=== PATIENT | female | born 1945 | race Caucasian/White ===

== ENCOUNTER 2016-05-17 07:11 | Emergency (ER) | payer OTHER ==
[~2016-05-17] VITALS: Ht 152.4 cm; Wt 74.0 kg
[~2016-05-17 07:11] MED LIST: ASPI81TA3 PO; BACL10TA PO; BENA1TAB13 PO; CHOL100062 PO; DIAZ5TAB4 PO; DIPH25CA6 PO; FENO48TA4 PO; GLIM4TAB PO; LANT3I SC; OMEG1CAP2 PO; PREG150C PO; TRAM50TA2 PO
[2016-05-17 07:15] VITALS: Ht 152.4 cm; Wt 74.0 kg
[2016-05-17] MEDS ORDERED: GABA300C PO (08:44)
--- NOTE | 2016-05-17 08:48 | ERD ---
ER Documentation Chief Complaint Date/Time DATE: 05/17/16 TIME: 08:45 Chief Complaint pt bib self with c/o pain to right side of face "feels like face is moving" HPI 70-year-old female presents to the emergency department with facial pain. In February of this year, patient was admitted to the hospital for possible TIA. At that time, MRI performed showed a pituitary adenoma but no signs of infarct. Patient states that since then, she has had a chronic intermittent right-sided facial pain. She normally takes tramadol for the pain, but last night despite taking the tramadol, the pain continued. She had no other neurologic complaints including no focal weakness numbness facial droop difficulty speaking or headache. ROS All systems reviewed and are negative except as per history of present illness. Medications Home Meds Active Scripts Gabapentin* (Neurontin*) 300 Mg Capsule, 300 MG PO BID for PAIN, #60 CAP Prov:RADHA JUAREZ 05/17/16 Tramadol HCl (Tramadol HCl) 50 Mg Tablet, 50 MG PO Q8H Y for body aches, #50 TAB Prov:OMAR MENA M.D. 03/01/16 Insulin Glargine* (Lantus*) 100 Unit/Ml Soln, 80 UNIT SC BID for 30 Days Prov:OMAR MENA M.D. 03/01/16 Reported Medications Benazepril-Hydrochlorothiazide (Benazepril-Hydrochlorothiazide) 20-12.5 Mg Tablet, 1 TAB PO DAILY, #30 TAB 02/29/16 Diazepam* (Diazepam*) 5 Mg Tablet, 5 MG PO DAILY Y for ANXIETY, TAB 02/29/16 Diphenhydramine Hcl* (Diphenhydramine Hcl*) 25 Mg Capsule, 25 MG PO DAILY Y for ITCHING, CAP 02/29/16 Aspirin* (Aspirin* Chew) 81 Mg Tab.chew, 81 MG PO DAILY, TAB.CHEW 02/29/16 Cholecalciferol* (Vitamin D3*) 1,000 Unit Tablet, 1000 UNIT PO DAILY, TAB 02/29/16 [place]-3 Acid Ethyl Esters (Lovaza) 1 Gm Capsule, 2 GM PO BID, CAP 02/29/16 Baclofen* (Baclofen*) 10 Mg Tablet, 10 MG PO BID, TAB 02/29/16 Pregabalin* (Lyrica*) 150 Mg Capsule, 150 MG PO BID, CAP 02/29/16 Fenofibrate Nanocrystallized* (Fenofibrate*) 48 Mg Tablet, 48 MG PO DAILY, TAB 02/29/16 Glimepiride* (Glimepiride*) 4 Mg Tablet, 8 MG PO DAILY, TAB 02/29/16 Allergies Allergies: Coded Allergies: No Known Drug Allergy (Verified Allergy, Unknown, 05/17/16) PMhx/Soc History of Surgery: Yes (hernia repair, Csection) Anesthesia Reaction: No Hx Neurological Disorder: No Hx Respiratory Disorders: No Hx Cardiac Disorders: Yes (HTN; HIGH CHOLESTEROL) Hx Psychiatric Problems: No Hx Miscellaneous Medical Probl: Yes (CVA; DM) Hx Alcohol Use: No Hx Substance Use: No Hx Tobacco Use: No FmHx Noncontributory for chief complaint Physical Exam Vitals Vital Signs Date Time Temp Pulse Resp B/P Pulse Ox O2 Delivery O2 Flow Rate FiO2 05/17/16 07:15 98.3 64 16 163/73 98 Physical Exam GENERAL: The patient is well developed and appropriate for usual state of health in no apparent distress HEENT: Pupils equal, round, and reactive to light. EOMI. There is no scleral icterus. NECK: C-spine is soft and supple, there is no meningismus. There is no cervical lymphadenopathy. LUNGS: Clear to auscultation bilaterally. There are no rales, wheezes or rhonchi. HEART: Regular rate and rhythm, no murmurs, clicks, rubs or gallops. ABDOMEN: Soft, non-tender, non-distended. There are bowel sounds in all four quadrants. No rebound or guarding. EXTREMITIES: There is no peripheral cyanosis or edema. No focal swelling or erythema. NEURO: Patient is awake alert oriented. Pupils are midrange, equal round and reactive to light, face is symmetric, tongue is midline. Motor strength is 5 out of 5 throughout all extremities. She has a normal gait and balance. Finger to nose is normal bilaterally. Speech is normal. SKIN: There is no apparent rash or petechiae. HEME/LYMPHATIC: There is no evidence of excessive bruising or lymphedema. PSYCHIATRIC: Patient is tearful and anxious. Procedures/MDM Patient was taken to a room, seen and examined. Medical decision making: This is a 70-year-old female with a history of a pituitary adenoma but no signs of ischemic cerebrovascular disease presents to the emergency department with chronic intermittent facial pain consistent with most likely a trigeminal neuralgia. At this time, patient shows no evidence of stroke, no evidence of infection and no evidence of neurologic deterioration. Her pain is clearly complicated by her anxiety and after explanation that her adenoma should not cause stroke it is not a dangerous concern, patient has been reassured. I will be adding Neurontin for her pain, but she otherwise appears to be clinically well with good outpatient follow-up and now appears appropriate for outpatient care. Departure Diagnosis: Primary Impression: Pain Additional Impression: Trigeminal neuralgia of right side of face Condition: Stable Patient Instructions: Trigeminal Neuralgia Additional Instructions: Please see your doctor this week for a recheck. return for any problems or concerns RADHA JUAREZ May 17, 2016 08:47
[2016-05-17 08:55] VITALS: BP 154/68; PULSE 68; RESP 18; TEMP 98.1
== END 2016-05-17 08:55 | disposition home or self-care (01) ==
LOC: FTE 07:11
DX: G50.0 Trigeminal neuralgia (principal); I10 Essential (primary) hypertension; E11.9 Type 2 diabetes mellitus without complications; Z79.4 Long term (current) use of insulin; Z79.82 Long term (current) use of aspirin; Z79.84 Long term (current) use of oral hypoglycemic drugs
CPT/HCPCS: 99283

== ENCOUNTER → 2016-06-18 | Emergency (ER) | payer OTHER ==
[~2016-06-18] VITALS: Ht 152.4 cm; Wt 78.5 kg
[~2016-06-18] MED LIST changes: +GABA300C PO; +HYDR-906 PO; +HYDROCODONE/APAP (5/325) TAB PO ONE
[2016-06-19 00:03] VITALS: Ht 152.4 cm; Wt 78.5 kg
--- NOTE | 2016-06-19 02:09 | ERD ---
ER Documentation Chief Complaint Date/Time DATE: 06/19/16 TIME: 02:04 Chief Complaint Right sided facial pain x1 year and on Neurontin. HPI 70-year-old female presents here in emergency department for right facial pain, patient has been diagnosed with trigeminal neuralgia, actually has an appointment with a neurologist specialist on 06/23/2016. Patient has had this problem for 1 year now, has had this chronically, patient was given Neurontin but it only helps mildly, describes pain as 8/10 scale, intermittent, sharp pain, it is a type of pain that radiates from the right temporomandibular joint of the right jaw area on and off, and it is worse upon sudden movement. Patient denies any trauma and affected area. Patient denies any focal weakness numbness or tingling. Patient denies any blurry vision. Patient denies any head injury. ROS All systems reviewed and are negative except as per history of present illness. Medications Home Meds Active Scripts Hydrocodone/Acetaminophen ([place] 5-325 Tablet) 1 Each Tablet, 1 TAB PO Q6H Y for SEVERE PAIN LEVEL 7-10, #10 TAB Prov:KARMA NAIR NP 06/19/16 Gabapentin* (Neurontin*) 300 Mg Capsule, 300 MG PO BID for PAIN, #60 CAP Prov:RADHA JUAREZ 05/17/16 Tramadol HCl (Tramadol HCl) 50 Mg Tablet, 50 MG PO Q8H Y for body aches, #50 TAB Prov:OMAR MENA M.D. 03/01/16 Insulin Glargine* (Lantus*) 100 Unit/Ml Soln, 80 UNIT SC BID for 30 Days Prov:MOAR MENA M.D. 03/01/16 Reported Medications Benazepril-Hydrochlorothiazide (Benazepril-Hydrochlorothiazide) 20-12.5 Mg Tablet, 1 TAB PO DAILY, #30 TAB 02/29/16 Diazepam* (Diazepam*) 5 Mg Tablet, 5 MG PO DAILY Y for ANXIETY, TAB 02/29/16 Diphenhydramine Hcl* (Diphenhydramine Hcl*) 25 Mg Capsule, 25 MG PO DAILY Y for ITCHING, CAP 02/29/16 Aspirin* (Aspirin* Chew) 81 Mg Tab.chew, 81 MG PO DAILY, TAB.CHEW 02/29/16 Cholecalciferol* (Vitamin D3*) 1,000 Unit Tablet, 1000 UNIT PO DAILY, TAB 02/29/16 [place]-3 Acid Ethyl Esters (Lovaza) 1 Gm Capsule, 2 GM PO BID, CAP 02/29/16 Baclofen* (Baclofen*) 10 Mg Tablet, 10 MG PO BID, TAB 02/29/16 Pregabalin* (Lyrica*) 150 Mg Capsule, 150 MG PO BID, CAP 02/29/16 Fenofibrate Nanocrystallized* (Fenofibrate*) 48 Mg Tablet, 48 MG PO DAILY, TAB 02/29/16 Glimepiride* (Glimepiride*) 4 Mg Tablet, 8 MG PO DAILY, TAB 02/29/16 Allergies Allergies: Coded Allergies: No Known Drug Allergy (Verified Allergy, Unknown, 05/17/16) PMhx/Soc History of Surgery: Yes (hernia repair, Csection) Anesthesia Reaction: No Hx Neurological Disorder: No Hx Respiratory Disorders: No Hx Cardiac Disorders: Yes (HTN; HIGH CHOLESTEROL, trigeminal neurology) Hx Psychiatric Problems: No Hx Miscellaneous Medical Probl: Yes (CVA; DM) Hx Alcohol Use: No Hx Substance Use: No Hx Tobacco Use: No Smoking Status: Never smoker Physical Exam Vitals Vital Signs Date Time Temp Pulse Resp B/P Pulse Ox O2 Delivery O2 Flow Rate FiO2 06/19/16 00:03 98.4 81 18 138/68 95 Physical Exam GENERAL: The patient is well developed and appropriate for usual state of health, in no apparent distress. CHEST: Clear to auscultation bilaterally. There are no rales, wheezes or rhonchi. HEART: Regular rate and rhythm. No murmurs, clicks, rubs or gallops. No S3 or S4. ABDOMEN: Soft, nontender and nondistended. Good bowel sounds. No rebound or guarding. No gross peritonitis. No gross organomegaly or masses. No Jimenez sign or McBurney point tenderness. BACK: No midline or flank tenderness. EXTREMITIES: Equal pulses bilaterally. There is no peripheral clubbing, cyanosis or edema. No focal swelling or erythema. Full range of motion. Grossly neurovascularly intact. NEURO: Alert and oriented. Cranial nerves 2-12 intact. Motor strength in all 4 extremities with 5/5 strength. Sensation grossly intact. Normal speech and gait. Negative Romberg sign. Negative pronator drift. Nontender on palpation on the right jaw area, when she open the jaw she started to be on pain. No redness noted. SKIN: There is no apparent rash or petechia. The skin is warm and dry. HEMATOLOGIC AND LYMPHATIC: There is no evidence of excessive bruising or lymphedema. No gross cervical, axillary, or inguinal lymphadenopathy. Results 24 hrs Current Medications Medications (Trade) Dose Ordered Sig/Brent Route PRN Reason Start Time Stop Time Status Last Admin Dose Admin Acetaminophen/ Hydrocodone Bitart ([place] (5/325)) 1 tab ONCE ONCE PO 06/19/16 02:00 06/19/16 02:01 DC Patient was given medication for pain here in emergency department, after treatment, patient verbalized feeling much better. Patient's pain is improved. Procedures/MDM Medical decision making: Patient's symptoms most active consistent with trigeminal neuralgia. Patient has had this chronic problem. After given [place] patient's pain improved, patient is a neurology specialist appointment on Thursday , 06/23, patient did not have any trauma on affected area. Repeat radiology exam is not indicated at this time. No symptoms of neurologic emergencies at this time. No symptoms of any abscesses or cellulitis. No symptoms of any stroke. Patient was given Rx for [place] for pain, is advised to follow-up with neurology specialist upper appointment. Patient was advised to return to emergency department for any worsening symptoms. Departure Diagnosis: Primary Impression: Trigeminal neuralgia Patient Instructions: Trigeminal Neuralgia Additional Instructions: see neurology specialist as per appt on thursday, 06/23 KARMA NAIR NP Jun 19, 2016 02:09
[2016-06-19 02:26] VITALS: BP 127/62; PULSE 85; RESP 18; TEMP 98.4
== END | disposition home or self-care (01) ==
LOC: FTE 22:33
DX: G50.0 Trigeminal neuralgia (principal); E11.9 Type 2 diabetes mellitus without complications; I10 Essential (primary) hypertension; Z79.82 Long term (current) use of aspirin; Z79.4 Long term (current) use of insulin
CPT/HCPCS: 99283